=== PATIENT | female | born 1990 | race Two or more races ===

== ENCOUNTER 2017-12-05 20:02 | Emergency (ER) | payer SELFPAY, MEDICAID ==
[2017-12-05] MEDS: IV NORMAL SALINE 1000ML BAG 1,000 ML IV ×2 (20:36)
[2017-12-05] MEDS: METOCLOPRAMIDE HCL 10 MG/2 ML VIAL. IV ×2 (20:36)
[2017-12-05] MEDS: diphenhydrAMINE 50 MG/ML VIAL IVP ×2 (20:36)
[2017-12-05 20:37] LABS: URINE HCG POC HCG NEGATIVE (Negative)
[2017-12-05 20:49] LABS: BILIRUBIN,URINE NEGATIVE (NEG); CLARITY,URINE CLEAR; COLOR,URINE YELLOW; GLUCOSE,URINE NEGATIVE (NEG); NITRITE,URINE NEGATIVE (NEG); PH,URINE 6.5; PROTEIN,URINE NEGATIVE (NEG-TRACE); UROBILINOGEN,URINE 0.2 mg/dL (0.2 mg/dL)
[2017-12-05 21:01] LABS: BACTERIA,URINE FEW /HPF (0-FEW); RBC,URINE 0 /HPF (0-2); SQUAMOUS EPITHELIAL CELL,UR MOD /LPF
== END 2017-12-05 23:28 | disposition home or self-care (01) ==
LOC: ER 20:02
DX: R51 Headache (principal); R42 Dizziness and giddiness; Z90.49 Acquired absence of other specified parts of digestive tract; [UNRECOGNIZED DIAGNOSIS CODE]
CPT/HCPCS: 81001; 81025; 87086; 96361; 96374; 96375; 99284-25; J1200; J2765; J7030